=== PATIENT | female | born 1990 | race Caucasian/White ===

== ENCOUNTER → 2016-11-01 | Outpatient (REF) | payer OTHER | LOC: M LAB REF 12:53 | PROVIDERS: ATTEND Obstetrics & Gynecology | DX: Z34.83 Encounter for supervision of other normal pregnancy, third trimester (principal) ==

== ENCOUNTER 2016-12-01 05:22 | Inpatient (IN) | payer OTHER ==
[~2016-12-01] VITALS: Ht 172.7 cm; Wt 80.0 kg
[2016-12-01] VITALS (8 sets, daily range): BP systolic 100–117; BP diastolic 55–72
[~2016-12-01 05:22] MED LIST: PRENTAB52 PO
[2016-12-01] MEDS ORDERED: BICITRA 30ML SOLN UDC PO ONE (06:00)
[2016-12-01 06:14] LABS: MEAN CORPUSCULAR HEMOGLOBIN 32.1 pg (27.0-33.0); MEAN CORPUSCULAR HGB CONC 34.8 g/dl (32.0-36.5); MEAN CORPUSCULAR VOLUME 92.3 fl (80.0-96.0); RED CELL DISTRIBUTION WIDTH 12.7 % (11.5-14.5); WHITE BLOOD COUNT 12.6 K/mm3 (4.0-10.0)
[2016-12-01] MEDS ORDERED: LR 1,000 ML IV ONE (06:15)
[2016-12-01] MEDS ORDERED: PRENTAB13 PO (06:55)
[2016-12-01] MEDS ORDERED: MORPHINE PRES-FREE INJ 10 MG/10 ML VIAL (J2274) As Ordered ONE (07:28)
[2016-12-01] MEDS ORDERED: OXYTOCIN INJ 10 UNITS/ML VIAL (J2590) As Ordered ONE (07:29)
[2016-12-01] MEDS ORDERED: KETOROLAC 60 MG/2 ML VIAL (J1885) As Ordered ONE (07:29)
[2016-12-01] MEDS ORDERED: ONDANSETRON 4MG/2ML VIAL (J2405) As Ordered ONE (07:29)
[2016-12-01] MEDS ORDERED: LR 800 ML IV SCH (08:00)
[2016-12-01 08:22] LABS: CORD GAS HCO3 A 24.9 MEQ/L; CORD GAS HCO3 V 24.1 MEQ/L; CORD GAS O2 SAT A 26.4 %; CORD GAS PCO2 V 51.8 mmHg; CORD GAS PH A 7.25 UNITS; CORD GAS PH V 7.285 UNITS; CORD GAS PO2 A 16.8 mmHg; CORD GAS PO2 V 26.5 mmHg; CORD GAS SBC A 20.5 MEQ/L; CORD GAS SBC V 21.1 MEQ/L; CORD GAS TCO2 A 26.6 MEQ/L; CORD GAS TCO2 V 25.7 MEQ/L
[2016-12-01] MEDS ORDERED: LR 1,000 ML IV SCH ×3 (08:48→09:15)
[2016-12-01] MEDS ORDERED: RHOGAM 300 MCG (1500 IU) INJ (J2790) IM SCH (09:00)
[2016-12-01] MEDS ORDERED: NORCO, ANEXSIA 5/325MG TABLET (HYDROcodone/ACETAMINOPHEN) PO PRN ×2 (09:00)
[2016-12-01] MEDS ORDERED: MEASLES,MUMPS,RUBELLA VACCINE INJ (MMR-II) (90707) SC SCH (09:00)
[2016-12-01] MEDS: PRENATAL VITAMIN TAB PO SCH (09:00)
[2016-12-01] MEDS ORDERED: ONDANSETRON 4MG/2ML VIAL (J2405) IV PRN (09:00)
[2016-12-01] MEDS ORDERED: METHYLERGONOVINE MALEATE 0.2 MG TAB PO PRN (09:00)
[2016-12-01] MEDS: DOCUSATE SODIUM 100 MG CAP PO SCH ×2 (09:00→23:08)
[2016-12-01] MEDS ORDERED: PERCOCET 5MG/325MG TAB PO PRN (09:15)
[2016-12-01] MEDS ORDERED: fentaNYL 100 MCG/2 ML INJECTION (J3010) IV PRN (09:15)
--- NOTE | 2016-12-01 10:45 | HPE ---
DATE OF ADMISSION: 12/01/2016 Bonita is a 26-year-old female, 2, para 1-0-0-1, with a history of prior section, estimated date of confinement (EDC) 12/08/2016, estimated gestational age (EGA) 39+ weeks gestation, who is being admitted for elective repeat section. Upon admission, no bleeding, no leakage of fluid, good movement. Her records reviewed, which was essentially unremarkable. lab: Blood type is B+, rubella immune, hepatitis negative, HIV negative, GC and chlamydia negative, 1-hour sugar testing was within normal limits. Her GBS is negative. PAST SURGICAL HISTORY: section times one. SOCIAL HISTORY: She is single. Denies any alcohol, drugs or cigarette smoking. REVIEW OF SYSTEMS: Unremarkable. FAMILY HISTORY: Unremarkable. MEDICATIONS: - vitamins ALLERGIES: NO KNOWN DRUG ALLERGIES. PHYSICAL EXAMINATION: Normal-appearing female in no acute distress. Abdomen: Soft, nontender, nondistended. Extremities: No clubbing, cyanosis or edema. Vaginal exam deferred. Tracing reviewed. Category 1 tracing. No contraction. ASSESSMENT: 1. Term for elective repeat section at 39-2/7 weeks gestation. 2. Breech presentation. PLAN: Admit to labor and delivery. Routine labs reviewed. Awaiting operating room (OR) for repeat section.
--- NOTE | 2016-12-01 14:46 | RO ---
DATE OF PROCEDURE: 12/01/2016 PREPROCEDURE DIAGNOSES: 1. Intrauterine at 39-2/7 weeks gestation for an elective repeat section. 2. Breech presentation. POSTPROCEDURE DIAGNOSES: 1. Intrauterine at 39-2/7 weeks gestation for elective repeat section. 2. Breech presentation. 3. 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 PROCEDURE: 1. Repeat section. 2. Breech extraction. 3. Revision of old scar. SURGEON: Prabhakar Zarate DO QUILL FIXER: Amanda Barry ANESTHESIA: Spinal. Bonita is a 26-year-old female 2, para 1-0-0-1, with a history of prior section who is being admitted for an elective repeat section. Patient also found in breech presentation. COMPLICATION: None. ESTIMATED BLOOD LOSS: 500 mL. FINDING: A live male infant born at 8:05, scores 9, 9. weight 8 pounds 2 ounces. Normal-appearing tube and ovaries. The uterus is an arcuate uterus with the fetus mostly to the maternal right side of the uterus. DESCRIPTION OF PROCEDURE: After obtaining informed consent, patient was taken to the operating room where spinal anesthetic was found to be adequate. She was then draped and prepped in the usual sterile fashion in the supine position. At this point, elliptical incision was made over her old scar. This was carried down to the fascia. Fascia was incised in midline fashion and carried through laterally. Superior aspect of the fascia was then grasped with the Rishabh clamps, tented off, and dissected off the rectus muscles sharply. The inferior aspect was dissected off in a similar fashion. Rectus muscles in midline fashion. Perineum identified. Peritoneal cavity entered bluntly. Superior and inferior dissection of the peritoneum was then done with good visualization of the bladder. At this point, a Mobius skin retractor was placed. A low-transverse uterine incision was made. Copious amount of clear amniotic fluid was noted. The infant was delivered via a breech extraction. Nose and mouth bulb suctioned. Cord doubly clamped and cut, and infant was handed over to the awaiting warmer. Cord blood and cord gas were sent. Placenta removed manually. Uterus cleared of all clot and debris, and the uterine incision was then repaired in two separate layers of #0 Vicryl suture. Pelvis copiously irrigated with normal saline and suctioned out. Attention turned to the peritoneum which was closed in a running fashion using #2-0 Vicryl. Fascia closed in two separate segments of #0 Vicryl sutures, and the skin was reapproximated in a subcuticular fashion using #3-0 Vicryl on a Jose Maria. Steri-Strips placed. Patient tolerated procedure well. She was then transferred to recovery room in stable condition.
[2016-12-01] MEDS: IBUPROFEN 800 MG TAB PO SCH ×2 (16:12→23:57)
[2016-12-02 02:00] VITALS: BP 92/50
[2016-12-02 06:36] VITALS: BP 94/53
[2016-12-02 07:09] LABS: MEAN CORPUSCULAR HEMOGLOBIN 32.1 pg (27.0-33.0); MEAN CORPUSCULAR VOLUME 94.4 fl (80.0-96.0); RED CELL DISTRIBUTION WIDTH 12.9 % (11.5-14.5); WHITE BLOOD COUNT 12.9 K/mm3 (4.0-10.0)
[2016-12-02] MEDS: IBUPROFEN 800 MG TAB PO SCH ×3 (07:40→23:53)
[2016-12-02] MEDS: PRENATAL VITAMIN TAB PO SCH (07:40)
[2016-12-02] MEDS: DOCUSATE SODIUM 100 MG CAP PO SCH ×2 (07:40→21:00)
[2016-12-02 10:00] VITALS: BP 127/67
[2016-12-02 14:00] VITALS: BP 104/59
[2016-12-02 18:13] VITALS: BP 107/63
[2016-12-02 22:14] VITALS: BP 111/67
[2016-12-03 05:54] VITALS: BP 120/59
[2016-12-03] MEDS: DOCUSATE SODIUM 100 MG CAP PO SCH ×2 (08:14→21:00)
[2016-12-03] MEDS: PRENATAL VITAMIN TAB PO SCH (08:14)
[2016-12-03] MEDS: IBUPROFEN 800 MG TAB PO SCH ×2 (08:15→17:04)
[2016-12-03] MEDS ORDERED: OXYC1TAB23 PO (09:56)
[2016-12-03] MEDS ORDERED: IBUP600T26 PO (10:00)
[2016-12-03 18:00] VITALS: BP 109/57
[2016-12-04 05:46] VITALS: BP 108/65
[2016-12-04] MEDS: DOCUSATE SODIUM 100 MG CAP PO SCH (08:09)
[2016-12-04] MEDS: PRENATAL VITAMIN TAB PO SCH (08:09)
[2016-12-04] MEDS: IBUPROFEN 800 MG TAB PO SCH ×2 (08:10)
== END 2016-12-04 11:15 | disposition home or self-care (01) | DRG 540 ==
LOC: M LDI 05:22 → M OBS 10:20
PROVIDERS: ADMIT Obstetrics & Gynecology; ATTEND Obstetrics & Gynecology
PROC: 0HB7XZZ Excision of Abdomen Skin, External Approach (ICD-10-PCS; 2016-12-01)
PROC: 10D00Z1 Extraction of Products of Conception, Low, Open Approach (ICD-10-PCS; principal; 2016-12-01 07:30)
DX: O32.1XX0 Maternal care for breech presentation, not applicable or unspecified (principal); O34.211 Maternal care for low transverse scar from previous cesarean delivery; Z37.0 Single live birth; Z3A.39 39 weeks gestation of pregnancy